=== PATIENT | female | born 1935 | race Caucasian/White ===

== ENCOUNTER 2017-11-30 12:44 | Inpatient (IN) ==
[2017-11-30] MEDS ORDERED: 0.9 % Sodium Chloride 1,000 ML IVC ONE ×2 (13:00→14:13)
--- NOTE | 2017-11-30 13:09 | Emergency Department Note ---
Disposition Clinical Impression: Weakness, FRANCES (acute kidney injury), Dehydration Disposition: Admitted As Inpatient Condition: Good Forms: ED Satisfaction Letter Time of Disposition: 15:34 General Adult HPI - General Chief complaint: ED Weakness Stated complaint: General Weakness Time Seen by Provider: 11/30/17 12:47 Source: patient, EMS Mode of arrival: EMS Limitations: no limitations Nursing Notes Reviewed: Yes Vital Signs Reviewed: Yes - History of Present Illness HPI Narrative: Patient is an 82-year-old female that presents emergency department for generalized weakness. Family states that she has been seen here 2 times in the past 7 days. The state that she has had nausea vomiting and diarrhea preceding today's visit. States that his resolved but she continues to feel weak and is had decreased oral intake of fluids and food. States that she has been drinking ice water. She also states that she has been eating small amounts of food including ice cream, vegetable soup and Jell-O. Family states that she is much weaker than normal and needs help with ambulation and with eating. States that she normally is able to perform these tasks without any issue. They deny any focal deficit she states that she generally seems weak. Pain Scale: 0 - Related Data Home Medications Medication Instructions Recorded Confirmed ALPRAZolam [Xanax 0.5 MG Tablet] 0.5 mg PO HS 03/30/15 10/02/16 Alendronate Sodium 70 mg PO QWEEK 03/30/15 10/02/16 Chlorpheniramine Maleate 4 mg PO BID 03/30/15 10/02/16 [Chlor-Trimeton] Docusate Sodium [Stool Softener] 50 mg PO DAILY 03/30/15 10/02/16 Ferrous Sulfate 325 mg PO DAILY 03/30/15 10/02/16 Gabapentin [Neurontin] 50 mg PO TID 03/30/15 10/02/16 Levothyroxine [Synthroid] 75 mcg PO 0630 03/30/15 10/02/16 Lidocaine Patch [Lidoderm 5% patch] 1 each TP Q12H 03/30/15 10/02/16 Lisinopril [Zestril] 5 mg PO DAILY 03/30/15 10/02/16 Nortriptyline [Pamelor] 50 mg PO HS 03/30/15 10/02/16 OxyCODONE Immed Rel [Roxicodone 10 10 mg PO Q6H PRN 11/03/15 05/08/17 MG] Pioglitazone [Actos] 45 mg PO 0800 03/30/15 10/02/16 Polyethylene Glycol 3350 [MiraLAX] 17 gm PO DAILY 03/30/15 10/02/16 Ranitidine HCl [Zantac] 150 mg PO BID 03/30/15 10/02/16 Simvastatin [Zocor] 20 mg PO HS 03/30/15 10/02/16 Ergocalciferol (VITAMIN D2) 50,000 unit PO QWEEK 02/01/16 10/02/16 [Vitamin D2 (50,000 UNIT)] Previous Rx's Medication Instructions Recorded Cyanocobalamin/FA/Pyridoxine 1 each PO DAILY #30 tablet 12/10/15 [Folbee Tablet] Ondansetron HCl [Zofran] 4 mg PO Q8HR PRN #15 tab 11/27/17 Allergies Allergy/AdvReac Type Severity Reaction Status Date / Time rofecoxib [From Vioxx] AdvReac Seizure Verified 11/27/17 16:42 Constitutional: Reports: weakness Cardiovascular: Denies: chest pain Respiratory: Denies: dyspnea Gastrointestinal: Denies: abdominal pain, vomiting, diarrhea Past Medical History - Past Medical History Medical history: Reports: arthritis, CHF, diabetes, hyperlipidemia, migraine, thyroid disease Surgical history: Reports: Psychiatric history: Reports: anxiety - Social History Smoking Status: Never smoker Smokeless Tobacco Status: No Alcohol use: Reports: none, unknown Drug use: Reports: none, unknown Physical Exam - General Limitations: no limitations General appearance: alert, in no apparent distress - Head Head exam: atraumatic, normocephalic - Eye Eye exam: Present: normal appearance, EOMI - Neck Neck exam: Present: normal inspection, full ROM, trachea midline - Respiratory Respiratory exam: Present: normal lung sounds bilaterally. Absent: respiratory distress, wheezes - Cardiovascular Cardiovascular exam: Present: regular rate, normal rhythm, normal heart sounds, +S1, +S2 - Abdominal Exam Abdominal exam: Present: soft, Non-Tender, normal bowel sounds - Neurological Exam Neurological exam: Present: alert, oriented X3, CN II-XII intact - Expanded Neurological Exam Cranial nerves: EOM function (II, III, IV, ): Normal, facial sensation (V): Normal, facial palsy (VII): Normal, gag reflex (IX): Normal, spinal accessory function (XI): Normal, tongue deviation (XII): Normal Motor strength - LUE: 5/5 Motor strength - RUE: 5/5 Motor strength - LLE: 5/5 Motor strength - RLE: 5/5 Sensory exam upper extremity: light touch: Normal Sensory exam lower extremity: light touch: Normal Coma Scale Eye Opening: Spontaneous Coma Scale Motor Response: Obeys Commands Coma Scale Verbal Response: Oriented Coma Scale Total: 15 - Psychiatric Psychiatric exam: Present: normal affect, normal mood - Skin Skin exam: Present: warm, dry, intact Course Vital Signs Temperature 98.3 F 11/30/17 12:55 Pulse Rate 94 11/30/17 12:55 Respiratory Rate 14 11/30/17 12:55 Blood Pressure 112/84 11/30/17 12:55 O2 Sat by Pulse Oximetry 95 11/30/17 12:55 Temperature 98.3 F 11/30/17 12:55 Pulse Rate 75 11/30/17 14:33 Respiratory Rate 16 11/30/17 14:33 Blood Pressure 120/59 11/30/17 14:33 O2 Sat by Pulse Oximetry 96 11/30/17 14:33 Oxygen Delivery Oxygen Delivery Nasal Cannula Medical Decision Making - MDM Narrative Medical decision making narrative: Due to the patient presenting to the emergency department generalized weakness we will obtain a CBC, CMP, troponin, chest x-ray EKG, urinalysis and patient will be given a liter IV fluids here in the emergency department. Laboratory testing showed acute kidney injury which is consistent with possible dehydration. The patient will need to be admitted to the hospital for further evaluation and management and IV fluids. I spoke with the hospitalist Dr. Marin and she has accepted the patient to their service. The patient be admitted to the hospital at this time for further evaluation and management. - Lab Data Lab results reviewed: Yes I reviewed the patient's lab results. Result diagrams: 11/30/17 13:00 11/30/17 13:00 Lab Results 11/30/17 11/30/17 11/30/17 Range/Units 13:00 13:00 13:02 WBC 9.1 (4.3-11.1) K/mcL RBC 3.60 L (3.82-4.97) M/mcL Hgb 10.7 L D (11.5-15.4) g/dL Hct 34.4 L (35.3-44.9) % MCV 95.6 (83.0-100.0) fL MCH 29.7 (28.0-33.3) pg MCHC 31.1 L (31.6-35.5) g/dL RDW 13.9 (11.5-14.5) % Plt Count 246 (140-400) K/mcL MPV 9.2 L (9.4-12.4) fL Immature Gran % 0.5 (0-4) % Seg Neutrophils % 66.0 % Lymphocytes % 14.3 % Monocytes % 14.4 % Eosinophils % 4.5 % Basophils % 0.3 % Neutrophils # 6.0 (1.6-8.9) K/mcL Lymphocytes # 1.3 (0.6-4.6) K/mcL Monocytes # 1.3 (0.0-1.3) K/mcL Eosinophils # 0.4 (0.0-0.6) K/mcL Basophils # 0.0 (0.0-0.2) K/mcL Sodium 135 L (136-145) mEq/L Potassium 4.0 (3.5-5.1) mEq/L Chloride 99 (98-107) mEq/L Carbon Dioxide 29 (23-29) mEq/L BUN 18 (8-23) mg/dL Creatinine 1.59 H (0.60-1.20) mg/dL Est GFR ( Amer) 38 L (> 60) Est GFR (Non-Af Amer) 31 L (> 60) BUN/Creatinine Ratio 11 (6-26) Glucose 121 H (70-105) mg/dL Calculated Osmolality 283 (280-300) Calcium 9.0 (8.6-10.3) mg/dL Total Bilirubin 0.3 (0.3-1.0) mg/dL AST 35 (13-39) Units/L ALT 17 (7-52) Units/L Alkaline Phosphatase 47 (34-104) Units/L Troponin I < 0.03 (< 0.04) ng/mL Serum Total Protein 6.4 (6.4-8.9) g/dL Albumin 3.7 (3.5-5.7) g/dL Globulin 2.7 (2.4-3.5) g/dL Albumin/Globulin Ratio 1.4 (1.1-2.2) Urine Color Dark Yellow (Yellow) Urine Clarity Clear (Clear) Urine pH 5.0 (5.0-8.0) pH Units Ur Specific Aurelia 1.028 H (1.010-1.025) Urine Protein Negative (Neg-Trace) mg/dL Urine Glucose (UA) Normal (Normal) mg/dL Urine Ketones Trace H (Negative) mg/dL Urine Blood Negative (Negative) Urine Nitrite Negative (Negative) Urine Bilirubin Small H (Negative) Urine Urobilinogen Normal (Normal) mg/dL Ur Leukocyte Esterase Negative (Negative) Ur Culture Indicated? NO (NO) - Radiology Data Radiology results reviewed: Yes I reviewed the patient's radiology results. Chest X-Ray 11/30/17 13:00 IMPRESSION: Limited chest with low lung volumes and rotation. No acute cardiopulmonary disease. D/ / Christopher Krishnamurthy MD / Christopher Krishnamurthy MD Interpreting Provider: Christopher Krishnamurthy MD - EKG Data EKG #1 EKG attestation: Yes I reviewed and interpreted this EKG. EKG results narrative: EKG shows a sinus rhythm and rate of 80 bpm, MT interval of 195, QRS duration 82 , QTC of 394 with a normal axis. No evidence of STEMI on EKG. This is compared to previous EKG on 11/24/17 which showed a sinus rhythm at a rate of 87 bpm.
[2017-11-30 13:20] LABS: Bilirubin,Urine Small (Negative); Blood,Urine Negative (Negative); Clarity,Urine Clear (Clear); Color,Urine Dark Yellow (Yellow); Glucose,Urine (UA) Normal (Normal); Ketones,Urine Trace mg/dL (Negative); Leukocyte Esterase,Urine Negative (Negative); Nitrite,Urine Negative (Negative); Protein,Urine Negative (Neg-Trace); Specific Gravity,Urine 1.028 (1.010-1.025); Urobilinogen,Urine Normal (Normal)
[2017-11-30 13:28] LABS: Basophils % 0.3 %; Eosinophils # 0.4 K/mcL (0.0-0.6); Eosinophils % 4.5 %; Hematocrit 34.4 % (35.3-44.9); Immature Granulocytes % 0.5 % (0-4); Lymphocytes # 1.3 K/mcL (0.6-4.6); Lymphocytes % 14.3 %; Mean Corpuscular HGB Conc 31.1 g/dL (31.6-35.5); Mean Corpuscular Hemoglobin 29.7 pg (28.0-33.3); Mean Corpuscular Volume 95.6 fL (83.0-100.0); Mean Platelet Volume 9.2 fL (9.4-12.4); Monocytes # 1.3 K/mcL (0.0-1.3); Monocytes % 14.4 %; Platelet Count 246 K/mcL (140-400); Red Cell Distribution Width 13.9 % (11.5-14.5)
[2017-11-30 13:30] LABS: Hemoglobin 10.7 g/dL (11.5-15.4)
[2017-11-30] MEDS ORDERED: 0.9 % Sodium Chloride 1,000 ML ONE (14:09)
--- NOTE | 2017-11-30 14:14 | Emergency Department Note ---
Disposition Clinical Impression: Weakness Disposition: Admitted As Inpatient Forms: ED Satisfaction Letter General Adult HPI - General Chief complaint: ED Weakness Stated complaint: General Weakness Time Seen by Provider: 11/30/17 12:47 Source: patient, EMS Mode of arrival: EMS Limitations: no limitations - History of Present Illness Pain Scale: 0 - Related Data Home Medications Medication Instructions Recorded Confirmed ALPRAZolam [Xanax 0.5 MG Tablet] 0.5 mg PO HS 03/30/15 10/02/16 Alendronate Sodium 70 mg PO QWEEK 03/30/15 10/02/16 Chlorpheniramine Maleate 4 mg PO BID 03/30/15 10/02/16 [Chlor-Trimeton] Docusate Sodium [Stool Softener] 50 mg PO DAILY 03/30/15 10/02/16 Ferrous Sulfate 325 mg PO DAILY 03/30/15 10/02/16 Gabapentin [Neurontin] 50 mg PO TID 03/30/15 10/02/16 Levothyroxine [Synthroid] 75 mcg PO 0630 03/30/15 10/02/16 Lidocaine Patch [Lidoderm 5% patch] 1 each TP Q12H 03/30/15 10/02/16 Lisinopril [Zestril] 5 mg PO DAILY 03/30/15 10/02/16 Nortriptyline [Pamelor] 50 mg PO HS 03/30/15 10/02/16 OxyCODONE Immed Rel [Roxicodone 10 10 mg PO Q6H PRN 03/30/15 10/02/16 MG] Pioglitazone [Actos] 45 mg PO 0800 03/30/15 10/02/16 Polyethylene Glycol 3350 [MiraLAX] 17 gm PO DAILY 03/30/15 10/02/16 Ranitidine HCl [Zantac] 150 mg PO BID 03/30/15 10/02/16 Simvastatin [Zocor] 20 mg PO HS 03/30/15 10/02/16 Ergocalciferol (VITAMIN D2) 50,000 unit PO QWEEK 02/01/16 10/02/16 [Vitamin D2 (50,000 UNIT)] Previous Rx's Medication Instructions Recorded Cyanocobalamin/FA/Pyridoxine 1 each PO DAILY #30 tablet 12/10/15 [Folbee Tablet] Ondansetron HCl [Zofran] 4 mg PO Q8HR PRN #15 tab 11/27/17 Allergies Allergy/AdvReac Type Severity Reaction Status Date / Time rofecoxib [From Vioxx] AdvReac Seizure Verified 11/27/17 16:42 Constitutional: Reports: weakness Cardiovascular: Denies: chest pain Respiratory: Denies: dyspnea Gastrointestinal: Denies: abdominal pain, vomiting, diarrhea Past Medical History - Past Medical History Medical history: Reports: arthritis, CHF, diabetes, hyperlipidemia, migraine, thyroid disease Surgical history: Reports: Psychiatric history: Reports: anxiety - Social History Smoking Status: Never smoker Smokeless Tobacco Status: No Alcohol use: Reports: none, unknown Drug use: Reports: none, unknown Physical Exam - General Limitations: no limitations General appearance: alert, in no apparent distress Course Vital Signs Temperature 98.3 F 11/30/17 12:55 Pulse Rate 94 11/30/17 12:55 Respiratory Rate 14 11/30/17 12:55 Blood Pressure 112/84 11/30/17 12:55 O2 Sat by Pulse Oximetry 95 11/30/17 12:55 Temperature 98.3 F 11/30/17 12:55 Pulse Rate 94 11/30/17 12:55 Respiratory Rate 14 11/30/17 12:55 Blood Pressure 112/84 11/30/17 12:55 O2 Sat by Pulse Oximetry 95 11/30/17 13:19 Oxygen Delivery Oxygen Delivery Room Air Medical Decision Making - Lab Data Result diagrams: 11/30/17 13:00 Lab Results 11/30/17 11/30/17 Range/Units 13:00 13:02 WBC 9.1 (4.3-11.1) K/mcL RBC 3.60 L (3.82-4.97) M/mcL Hgb 10.7 L D (11.5-15.4) g/dL Hct 34.4 L (35.3-44.9) % MCV 95.6 (83.0-100.0) fL MCH 29.7 (28.0-33.3) pg MCHC 31.1 L (31.6-35.5) g/dL RDW 13.9 (11.5-14.5) % Plt Count 246 (140-400) K/mcL MPV 9.2 L (9.4-12.4) fL Immature Gran % 0.5 (0-4) % Seg Neutrophils % 66.0 % Lymphocytes % 14.3 % Monocytes % 14.4 % Eosinophils % 4.5 % Basophils % 0.3 % Neutrophils # 6.0 (1.6-8.9) K/mcL Lymphocytes # 1.3 (0.6-4.6) K/mcL Monocytes # 1.3 (0.0-1.3) K/mcL Eosinophils # 0.4 (0.0-0.6) K/mcL Basophils # 0.0 (0.0-0.2) K/mcL Urine Color Dark Yellow (Yellow) Urine Clarity Clear (Clear) Urine pH 5.0 (5.0-8.0) pH Units Ur Specific Koppel 1.028 H (1.010-1.025) Urine Protein Negative (Neg-Trace) mg/dL Urine Glucose (UA) Normal (Normal) mg/dL Urine Ketones Trace H (Negative) mg/dL Urine Blood Negative (Negative) Urine Nitrite Negative (Negative) Urine Bilirubin Small H (Negative) Urine Urobilinogen Normal (Normal) mg/dL Ur Leukocyte Esterase Negative (Negative) Ur Culture Indicated? NO (NO) Attestation Statement - Attestation Attestation: I examined this patient and my medical decision-making was reviewed with the Resident Physician. I agree with the documented findings, disposition and treatment plan as described except to the extent set forth below. 82 year old female presents to the ED with complaints of generalized weakness and was most recently admitted to the hospital. She states that she stays at her private home with many adults and states that she was feeling increasingly better until last week and then had decreased urine output and generalied weakness somuch so that she now has difficulty standing up without becoming pre- sycnopal. Christopher placed and it shows dark, tea-colored urine. She idenies all other chest and abdominal pain, or UTI symptoms. Atinet appears dehydraed at bedside. I have concenres for renal failure. WE will do labs and EKG and AMS workup and then chasity leigh admit ot medicine.
[2017-11-30 14:41] LABS: Troponin I < 0.03 ng/mL (< 0.04)
[2017-11-30 14:46] LABS: Alanine Aminotransferase 17 Units/L (7-52); Albumin 3.7 g/dL (3.5-5.7); Albumin/Globulin Ratio 1.4 (1.1-2.2); Alkaline Phosphatase 47 Units/L (34-104); Aspartate Amino Transferase 35 Units/L (13-39); BUN/Creatinine Ratio 11 (6-26); Bilirubin,Total 0.3 mg/dL (0.3-1.0); Blood Urea Nitrogen 18 mg/dL (8-23); Carbon Dioxide 29 mEq/L (23-29); Chloride 99 mEq/L (98-107); Globulin 2.7 g/dL (2.4-3.5); Glucose 121 mg/dL (70-105); Osmolality,Calculated 283 (280-300); Sodium 135 mEq/L (136-145); Total Protein 6.4 g/dL (6.4-8.9); eGFR For African Americans 38 (> 60); eGFR For Non-African Americans 31 (> 60)
--- NOTE | 2017-11-30 16:42 | Internal Med History&Physical ---
Date of Encounter: 11/30/17 Time of Encounter: 16:42 Internal Medicine - H&P: HPI Chief complaint: weekness History of present illness: Ms. Dutta is a 82 year old female that presents emergency department for generalized weakness after several episodes of nausea vomiting and diarrhea preceding today's visit. States that his resolved but she continues to feel weak and is had decreased oral intake of fluids and food. Labs revealed FRANCES and she was admitted for further evaluation. Past Med Surg Social Fam HX - Past Medical History Medical history: arthritis, CHF, diabetes, hyperlipidemia, migraine, thyroid disease Additional medical history: anemia, hypothyroid, osteoarthritis, scoliosis Psychiatric history: anxiety - Past Surgical History Surgical History: Additional surgical history: x3 cesection - Social History Smoking Status: Never smoker Smokeless Tobacco Status: No Alcohol use: none, unknown Drug use: none, unknown - Family History Mother Living Status: Cause of : 67 Hx Family Cardiac Disorders: Yes Hx Family Cancer: No Hx Family Musculoskeletal Disorders: Yes Hx Family Autoimmune Disorders: Yes Internal Medicine - H&P: Meds ALPRAZolam [Xanax 0.5 MG Tablet] 0.5 mg PO HS PRN 03/30/15 [History] Alendronate Sodium 70 mg PO QWEEK 03/30/15 [History] Chlorpheniramine Maleate [Chlor-Trimeton] 4 mg PO BID 03/30/15 [History] Docusate Sodium [Stool Softener] 50 mg PO PRN PRN 03/30/15 [History] Ferrous Sulfate 325 mg PO DAILY 03/30/15 [History] Gabapentin [Neurontin] 1,200 mg PO TID 03/30/15 [History] Levothyroxine [Synthroid] 75 mcg PO 0630 03/30/15 [History] Lisinopril [Zestril] 5 mg PO DAILY 03/30/15 [History] Nortriptyline [Pamelor] 50 mg PO HS 03/30/15 [History] Pioglitazone [Actos] 45 mg PO 0800 03/30/15 [History] Polyethylene Glycol 3350 [MiraLAX] 17 gm PO DAILY 03/30/15 [History] Ranitidine HCl [Zantac] 150 mg PO BID 03/30/15 [History] Simvastatin [Zocor] 20 mg PO HS 03/30/15 [History] Ergocalciferol (VITAMIN D2) [Vitamin D2 (50,000 UNIT)] 50,000 unit PO QWEEK 11/10 [History] Ondansetron HCl [Zofran] 4 mg PO Q8HR PRN #15 tab 11/27/17 [Rx] B12/Levomefolate Calcium/B-6 [Foltx Tablet] 1 cap PO DAILY 11/30/17 [History] 3 Allergy/AdvReac Type Severity Reaction Status Date / Time rofecoxib [From Vioxx] AdvReac Seizure Verified 11/27/17 16:42 All Systems PM: A 10-system review of systems was performed and is negative for pertinent findings except as documented above in the HPI. - Constitutional Constitutional: fatigue, malaise, no chills, no fever(s), no night sweats - Cardiovascular Cardiovascular ROS IM: no chest pain, no diaphoresis, no dyspnea, no lightheadedness, no palpitations, no syncope - Respiratory Respiratory: no cough, no dyspnea, no wheezing, no excessive phlegm production - Gastrointestinal Gastrointestinal: no abdominal pain, no diarrhea, no hematemesis, no hematochezia, no melena, no nausea, no vomiting - Neurological Neurological ROS: no confusion, no convulsions, no focal weakness, no numbness, no tingling, no tremor(s) - Constitutional Vitals: Temp Pulse Resp BP Pulse Ox 97.0 F L 78 19 115/52 96 11/30/17 16:30 11/30/17 16:30 11/30/17 16:30 11/30/17 16:30 11/30/17 14:33 General appearance: Present: A&O X 3 - Head Head exam: Present: atraumatic, normocephalic - Respiratory Respiratory exam: Present: CTAB. Absent: accessory muscle use, rales, rhonchi, wheezes - Cardiovascular Cardiovascular exam: Present: RRR, +S1, +S2. Absent: diastolic murmur, gallop, rubs, systolic murmur - GI/Abdominal GI/Abdominal exam: Present: normal bowel sounds, soft, no peritoneal signs. Absent: distended, tenderness - Extremities Exam Extremities exam: Present: warm, radial pulses palpable and symmetrical. Absent : calf tenderness, cyanotic, pedal edema Internal Med - H&P Results - Labs CBC & Chem 7: 11/30/17 13:00 11/30/17 13:00 - Assessment and plan (1) FRANCES (acute kidney injury) Current Visit: Yes Status: Acute Assessment and plan: Most likely 2/2 pre-renal etiology in the sitting of volume depletion, starting IV hydration with NS, strict I/Os avoid nephrotoxins, renal dosing of meds as per current eGFR. (2) Hypertension Current Visit: No Status: Chronic Qualifiers: Hypertension type: essential hypertension Qualified Code(s): I10 - Essential (primary) hypertension (3) Hyperlipidemia Current Visit: No Status: Chronic Qualifiers: Hyperlipidemia type: unspecified Qualified Code(s): E78.5 - Hyperlipidemia , unspecified (4) Diabetes Current Visit: No Status: Chronic Qualifiers: Diabetes mellitus type: type 2 Diabetes mellitus half-way insulin use: without long term care social worker use Diabetes mellitus complication status: with unspecified complications Qualified Code(s): E11.8 - Type 2 diabetes mellitus with unspecified complications (5) GERD (gastroesophageal reflux disease) Current Visit: No Status: Chronic Qualifiers: Esophagitis presence: esophagitis presence not specified Qualified Code(s) : K21.9 - Gastro-esophageal reflux disease without esophagitis (6) DVT prophylaxis Current Visit: No Status: Acute - Time Spent With Patient Total time spent is greater than 50% in coordination of care (as documented) at patient's floor/unit and/or counseling patient:
[2017-11-30] MEDS ORDERED: Naloxone 0.4 MG/ML INJ IVP PRN (20:33)
[2017-11-30] MEDS ORDERED: *HR* HYDROcodone/Acet 5/325 mg TABLET PO PRN (20:33)
[2017-11-30] MEDS ORDERED: Acetaminophen 325 MG TABLET PO PRN (20:33)
[2017-11-30 22:37] LABS: INR 1.2
[2017-11-30 22:39] LABS: Activated Partial Thrombo Time 30.3 Seconds (26.0-36.0)
[2017-11-30] MEDS: 0.9 % Sodium Chloride 1,000 ML IVC SCH (22:58)
[2017-12-01] MEDS ORDERED: ALPRAZolam 0.5 MG TABLET PO PRN (03:49)
[2017-12-01] MEDS ORDERED: Ondansetron ODT 4 MG TAB.RAPDIS PO PRN (03:49)
[2017-12-01] MEDS ORDERED: Docusate Oral Soln 100 MG/10 ML UDC PO PRN (03:49)
[2017-12-01] MEDS ORDERED: *HR* Dextrose 50 % in Water (Syg) 50 ML SYRINGE IVP PRN (03:54)
[2017-12-01] MEDS ORDERED: Dextrose Gel 15 GM/37.5 ML TUBE PO PRN ×2 (03:54)
[2017-12-01] MEDS ORDERED: D5% in Water 1,000 ML IVC PRN (03:54)
[2017-12-01] MEDS ORDERED: NON-FORMULARY MEDICATION 1 EACH EACH (Alendronate Sodium [Alendronate Sodium] 70 MG) PO SCH (04:00)
[2017-12-01 04:42] LABS: Basophils % 0.3 %; Eosinophils # 0.5 K/mcL (0.0-0.6); Eosinophils % 4.3 %; Hematocrit 33.1 % (35.3-44.9); Hemoglobin 10.3 g/dL (11.5-15.4); Immature Granulocytes % 0.4 % (0-4); Lymphocytes % 8.9 %; Mean Corpuscular HGB Conc 31.1 g/dL (31.6-35.5); Mean Corpuscular Hemoglobin 29.8 pg (28.0-33.3); Mean Corpuscular Volume 95.7 fL (83.0-100.0); Mean Platelet Volume 9.3 fL (9.4-12.4); Monocytes # 1.5 K/mcL (0.0-1.3); Monocytes % 13.3 %; Neutrophils # 8.2 K/mcL (1.6-8.9); Platelet Count 252 K/mcL (140-400); Red Blood Count 3.46 M/mcL (3.82-4.97); Red Cell Distribution Width 13.9 % (11.5-14.5); Segmented Neutrophils % 72.8 %
[2017-12-01 05:06] LABS: Alanine Aminotransferase 17 Units/L (7-52); Albumin 3.4 g/dL (3.5-5.7); Albumin/Globulin Ratio 1.3 (1.1-2.2); Alkaline Phosphatase 47 Units/L (34-104); Aspartate Amino Transferase 34 Units/L (13-39); BUN/Creatinine Ratio 16 (6-26); Bilirubin,Total 0.4 mg/dL (0.3-1.0); Blood Urea Nitrogen 14 mg/dL (8-23); Calcium 8.5 mg/dL (8.6-10.3); Carbon Dioxide 24 mEq/L (23-29); Chloride 107 mEq/L (98-107); Chol/HDL Ratio 3.3 (0-4.9); Cholesterol 166 mg/dL (< 200); Globulin 2.6 g/dL (2.4-3.5); Glucose 112 mg/dL (70-105); HDL Cholesterol 50 mg/dL (40-59); LDL Cholesterol,Calculated 87 mg/dL (0-99); Magnesium 1.7 mg/dL (1.6-2.6); Osmolality,Calculated 287 (280-300); Phosphorous 2.7 mg/dL (2.7-4.5); Potassium 4.1 mEq/L (3.5-5.1); Sodium 138 mEq/L (136-145); Triglycerides 144 mg/dL (< 150); eGFR For African Americans > 60 (> 60); eGFR For Non-African Americans > 60 (> 60)
[2017-12-01] MEDS: *HR* Heparin 5,000 UNIT/ML VIAL SQ SCH ×2 (06:20→17:58)
[2017-12-01] MEDS: 0.9 % Sodium Chloride 1,000 ML IVC SCH (06:33)
[2017-12-01] MEDS: Famotidine 20 MG TABLET PO SCH ×2 (08:32→20:07)
[2017-12-01] MEDS: *HR* Pioglitazone 45 MG TABLET PO SCH (08:37)
[2017-12-01] MEDS: CHLORPHENIRAMINE MALEATE 4 MG PO SCH ×2 (08:37→23:45)
[2017-12-01] MEDS: FOLTX PO SCH (08:37)
[2017-12-01] MEDS: Insulin LISPRO 300 UNITS/3 ML VIAL SQ SCH ×4 (08:38→23:45)
--- NOTE | 2017-12-01 10:07 | Electrocardiograph Report ---
[facility] [employer] Test Date: 2017-11-30 Pat Name: Mildred Dutta Department: 102 Room: 3A31 Gender: F Dragger: Srini : 1935 Requested By: Dominic Toledo Order Number: [id number] Reading MD: Dorian Azevedo Measurements Intervals [place] Rate: 80 P: 3 AK: 195 QRS: 19 QRSD: 82 T: 76 QT: 359 QTc: 394 Interpretive Statements SINUS RHYTHM NONSPECIFIC T-WAVE ABNORMALITY Electronically Signed On 12-01-2017 10:06:31 EDT by Dorian Azevedo
[2017-12-01] MEDS: Gabapentin 300 MG CAPSULE PO SCH ×2 (11:36→20:07)
--- NOTE | 2017-12-01 15:03 | Internal Med Progress Note ---
Date of Encounter: 12/01/17 Time of Encounter: 13:35 - Assessment and plan (1) Acute renal failure Current Visit: Yes Status: Resolved Assessment and plan: Most likely due to dehydration. Has improved today. Will recheck labs tomorrow. Qualifiers: Acute renal failure type: with acute tubular necrosis Qualified Code(s): N17.0 - Acute kidney failure with tubular necrosis (2) Dehydration Current Visit: Yes Status: Acute Assessment and plan: Due to GI issues. Appears to be doing better. (3) Weakness Current Visit: Yes Status: Acute Assessment and plan: She feels very weak and does not feel she can get up and move. PT/OT consulted. At this point she is in observation status and has Medicare so I do not know what options she will have. (4) Hypertension Current Visit: No Status: Chronic Assessment and plan: Controlled at this time. Qualifiers: Hypertension type: essential hypertension Qualified Code(s): I10 - Essential (primary) hypertension (5) Hyperlipidemia Current Visit: No Status: Chronic Assessment and plan: Continue home meds. Qualifiers: Hyperlipidemia type: mixed hyperlipidemia Qualified Code(s): E78.2 - Mixed hyperlipidemia (6) Diabetes Current Visit: No Status: Chronic Assessment and plan: Currently accuchecks and coverage. Blood sugars appear controlled at this time. Qualifiers: Diabetes mellitus type: type 2 Diabetes mellitus termite inspector insulin use: without prison use Diabetes mellitus complication status: with unspecified complications Qualified Code(s): E11.8 - Type 2 diabetes mellitus with unspecified complications (7) GERD (gastroesophageal reflux disease) Current Visit: No Status: Chronic Assessment and plan: Chronic issue Qualifiers: Esophagitis presence: esophagitis presence not specified Qualified Code(s) : K21.9 - Gastro-esophageal reflux disease without esophagitis (8) Anemia Current Visit: No Status: Chronic Assessment and plan: Appears to be at baseline. Qualifiers: Anemia type: other cause Other causes of anemia: chronic disease, other Qualified Code(s): D63.8 - Anemia in other chronic diseases classified elsewhere (9) Hypothyroid Current Visit: No Status: Chronic Assessment and plan: Chronic issue Qualifiers: Hypothyroidism type: acquired Qualified Code(s): E03.9 - Hypothyroidism, unspecified (10) Severe protein-calorie malnutrition Current Visit: Yes Status: Chronic Assessment and plan: Supplements ordered. (11) DVT prophylaxis Current Visit: No Status: Acute - Time Spent With Patient Total time spent is greater than 50% in coordination of care (as documented) at patient's floor/unit and/or counseling patient: - Subjective Interval history: Ms. Dutta is currently in observation for FRANCES related to dehydration from nausea/vomiting and diarrhea. She remains moderate to high risk at this time. Ms. Dutta is feeling OK except for feeling tired. She said she was very weak prior to this and was having trouble standing. Currently her GI symptoms are improved but she does not feel she can get out of bed. No CP or SOB. No abd pain at this time. - Constitutional Vitals: Temp Pulse Resp BP Pulse Ox 98.6 F 78 16 127/65 97 12/01/17 14:33 12/01/17 14:33 12/01/17 14:33 12/01/17 14:33 12/01/17 14:33 General appearance: Present: A&O X 3 - Head Head exam: Present: normocephalic - Eye Eye exam: Present: EOMI, conjuntiva pink - ENT ENT exam: Present: mucous membranes dry - Respiratory Respiratory exam: Present: decreased breath sounds, CTAB. Absent: rhonchi, wheezes - Cardiovascular Cardiovascular exam: Present: RRR. Absent: tachycardia - GI/Abdominal GI/Abdominal exam: Present: soft. Absent: tenderness - Extremities Exam Extremities exam: Present: warm. Absent: tenderness - Neurological Exam Neurological exam: Present: alert, oriented X3 - Skin Skin exam: Present: dry, warm Internal Medicine: Result - Labs CBC & Chem 7: 12/01/17 04:00 12/01/17 04:00 Labs: Short CBC 12/01/17 Range/Units 04:00 WBC 11.3 H (4.3-11.1) K/mcL Hgb 10.3 L (11.5-15.4) g/dL Hct 33.1 L (35.3-44.9) % Plt Count 252 (140-400) K/mcL Neutrophils # 8.2 (1.6-8.9) K/mcL BMP 12/01/17 04:00 Sodium 138 Potassium 4.1 Chloride 107 Carbon Dioxide 24 BUN 14 Creatinine 0.88 Glucose 112 H Calcium 8.5 L Liver Function 12/01/17 Range/Units 04:00 Total Bilirubin 0.4 (0.3-1.0) mg/dL AST 34 (13-39) Units/L ALT 17 (7-52) Units/L Alkaline Phosphatase 47 (34-104) Units/L Albumin 3.4 L (3.5-5.7) g/dL - ABG Interpretation ABG results: PT/INR, D-dimer PT 13.0 Seconds (9.4-12.1) H 11/30/17 22:00 Consult Discharge Plan - Plan Referrals: Ney Hudson MD [Primary Care Provider] -
[2017-12-02] MEDS: *HR* Heparin 5,000 UNIT/ML VIAL SQ SCH ×2 (05:52→17:27)
[2017-12-02 07:56] LABS: Hemoglobin 9.8 g/dL (11.5-15.4); Mean Corpuscular HGB Conc 31.6 g/dL (31.6-35.5); Mean Corpuscular Hemoglobin 30.2 pg (28.0-33.3); Mean Corpuscular Volume 95.7 fL (83.0-100.0); Mean Platelet Volume 9.5 fL (9.4-12.4); Platelet Count 218 K/mcL (140-400); Red Blood Count 3.24 M/mcL (3.82-4.97); Red Cell Distribution Width 13.7 % (11.5-14.5)
[2017-12-02 08:19] LABS: BUN/Creatinine Ratio 17 (6-26); Blood Urea Nitrogen 11 mg/dL (8-23); Calcium 8.7 mg/dL (8.6-10.3); Carbon Dioxide 30 mEq/L (23-29); Chloride 107 mEq/L (98-107); Glucose 94 mg/dL (70-105); Magnesium 1.6 mg/dL (1.6-2.6); Osmolality,Calculated 285 (280-300); Potassium 4.3 mEq/L (3.5-5.1); Sodium 138 mEq/L (136-145); eGFR For African Americans > 60 (> 60); eGFR For Non-African Americans > 60 (> 60)
[2017-12-02] MEDS: Insulin LISPRO 300 UNITS/3 ML VIAL SQ SCH ×4 (08:46→21:29)
[2017-12-02] MEDS: *HR* Pioglitazone 45 MG TABLET PO SCH (08:52)
[2017-12-02] MEDS: Famotidine 20 MG TABLET PO SCH ×2 (08:56→21:29)
[2017-12-02] MEDS: Gabapentin 300 MG CAPSULE PO SCH ×2 (08:56→21:29)
[2017-12-02] MEDS: CHLORPHENIRAMINE MALEATE 4 MG PO SCH ×2 (08:58→21:28)
[2017-12-02] MEDS: FOLTX PO SCH (08:58)
--- NOTE | 2017-12-02 09:30 | Internal Med Progress Note ---
Date of Encounter: 12/02/17 Time of Encounter: 09:15 - Assessment and plan (1) Acute renal failure Current Visit: Yes Status: Resolved Assessment and plan: Renal function remains stable and normal. Expect was related to volume depletion. Qualifiers: Acute renal failure type: with acute tubular necrosis Qualified Code(s): N17.0 - Acute kidney failure with tubular necrosis (2) Dehydration Current Visit: Yes Status: Resolved Assessment and plan: Appears to have resolved as well. (3) Weakness Current Visit: Yes Status: Acute Assessment and plan: She was able to sit on edge of bed. PT/OT consulted. Currently in observation status so I expect will go home with [facility] after evaluation. (4) Hypertension Current Visit: No Status: Chronic Assessment and plan: Controlled at this time. Qualifiers: Hypertension type: essential hypertension Qualified Code(s): I10 - Essential (primary) hypertension (5) Hyperlipidemia Current Visit: No Status: Chronic Assessment and plan: Continue home meds. Qualifiers: Hyperlipidemia type: mixed hyperlipidemia Qualified Code(s): E78.2 - Mixed hyperlipidemia (6) Diabetes Current Visit: No Status: Chronic Assessment and plan: Currently accuchecks and coverage. Blood sugars appear controlled at this time. Qualifiers: Diabetes mellitus type: type 2 Diabetes mellitus petroleum terminal plant operator insulin use: without petroleum terminal plant operator use Diabetes mellitus complication status: with unspecified complications Qualified Code(s): E11.8 - Type 2 diabetes mellitus with unspecified complications (7) GERD (gastroesophageal reflux disease) Current Visit: No Status: Chronic Assessment and plan: Chronic issue Qualifiers: Esophagitis presence: esophagitis presence not specified Qualified Code(s) : K21.9 - Gastro-esophageal reflux disease without esophagitis (8) Anemia Current Visit: No Status: Chronic Assessment and plan: Her prior H/H was low in 2016. She was higher earlier this year but now lower again. Will check stool guiac as well. Qualifiers: Anemia type: other cause Other causes of anemia: chronic disease, other Qualified Code(s): D63.8 - Anemia in other chronic diseases classified elsewhere (9) Hypothyroid Current Visit: No Status: Chronic Assessment and plan: Chronic issue Qualifiers: Hypothyroidism type: acquired Qualified Code(s): E03.9 - Hypothyroidism, unspecified (10) Severe protein-calorie malnutrition Current Visit: Yes Status: Chronic Assessment and plan: Supplements ordered. (11) DVT prophylaxis Current Visit: No Status: Acute - Time Spent With Patient Total time spent is greater than 50% in coordination of care (as documented) at patient's floor/unit and/or counseling patient: - Subjective Interval history: Ms. Dutta is currently in observation for FRANCES related to dehydration from nausea/vomiting and diarrhea. She remains moderate to high risk at this time. Ms. Dutta feels OK. She was able to sit on the edge of the bed yesterday but she did not get up. She is currently eating breakfast and thinks she may be able to get to chair today. No fever or chills. No cough. No further nausea, vomiting or diarrhea today. - Constitutional Vitals: Temp Pulse Resp BP Pulse Ox 97.7 F 76 14 135/62 99 12/02/17 07:35 12/02/17 07:35 12/02/17 07:35 12/02/17 07:35 12/02/17 07:35 General appearance: Present: A&O X 3 - Head Head exam: Present: normocephalic - Eye Eye exam: Present: conjuntiva pink - ENT ENT exam: Present: mucous membranes moist - Respiratory Respiratory exam: Present: CTAB. Absent: rales, rhonchi, wheezes - Cardiovascular Cardiovascular exam: Present: RRR. Absent: tachycardia - GI/Abdominal GI/Abdominal exam: Present: soft. Absent: tenderness - Extremities Exam Extremities exam: Present: warm. Absent: tenderness - Neurological Exam Neurological exam: Present: alert, oriented X3 - Skin Skin exam: Present: dry, warm Internal Medicine: Result - Labs CBC & Chem 7: 12/02/17 07:40 12/02/17 07:40 Labs: Short CBC 12/02/17 Range/Units 07:40 WBC 6.7 (4.3-11.1) K/mcL Hgb 9.8 L (11.5-15.4) g/dL Hct 31.0 L (35.3-44.9) % Plt Count 218 (140-400) K/mcL BMP 12/02/17 07:40 Sodium 138 Potassium 4.3 Chloride 107 Carbon Dioxide 30 H BUN 11 Creatinine 0.65 Glucose 94 Calcium 8.7 - ABG Interpretation ABG results: PT/INR, D-dimer PT 13.0 Seconds (9.4-12.1) H 11/30/17 22:00 Consult Discharge Plan - Plan Referrals: Ney Hudson MD [Primary Care Provider] -
[2017-12-02] MEDS ORDERED: Ondansetron 4 MG/2 ML VIAL IVP ONE (22:26)
[2017-12-03] MEDS: *HR* Heparin 5,000 UNIT/ML VIAL SQ SCH (05:14)
[2017-12-03] MEDS: Famotidine 20 MG TABLET PO SCH (08:39)
[2017-12-03] MEDS: *HR* Pioglitazone 45 MG TABLET PO SCH (08:39)
[2017-12-03] MEDS: Gabapentin 300 MG CAPSULE PO SCH (08:40)
[2017-12-03] MEDS: CHLORPHENIRAMINE MALEATE 4 MG PO SCH (08:45)
[2017-12-03] MEDS: FOLTX PO SCH (08:45)
[2017-12-03] MEDS: Insulin LISPRO 300 UNITS/3 ML VIAL SQ SCH (08:52)
--- NOTE | 2017-12-03 09:25 | Discharge Summary ---
<Charline Carrillo N - Last Filed: 12/03/17 16:15> - NOTES TO OUTPATIENT PROVIDER Notes to Outpatient Provider: Patient was admitted for FRANCES, which was managed with IV hydration and strict monitoring. She had weakness on admission, which was addressed by PT/OT. Home health referral sent so patient can have these services at home. She was prescribed marinol to assist with appetite. Orders not resulted at time of discharge: Pending orders 12/03/17 08:38 BMP [Basic Metabolic Panel] Routine Date of Encounter: 12/03/17 Time of Encounter: 09:25 - Discharge Diagnosis (1) Anemia Priority: Secondary Status: Chronic Qualifiers: Anemia type: other cause Other causes of anemia: chronic disease, other Qualified Code(s): D63.8 - Anemia in other chronic diseases classified elsewhere (2) Hypertension Priority: Secondary Status: Chronic Qualifiers: Hypertension type: essential hypertension Qualified Code(s): I10 - Essential (primary) hypertension (3) Hyperlipidemia Priority: Secondary Status: Chronic Qualifiers: Hyperlipidemia type: mixed hyperlipidemia Qualified Code(s): E78.2 - Mixed hyperlipidemia (4) Diabetes Priority: Secondary Status: Chronic Qualifiers: Diabetes mellitus type: type 2 Diabetes mellitus oysterman insulin use: without oysterman use Diabetes mellitus complication status: with unspecified complications Qualified Code(s): E11.8 - Type 2 diabetes mellitus with unspecified complications (5) GERD (gastroesophageal reflux disease) Priority: Secondary Status: Chronic Qualifiers: Esophagitis presence: esophagitis presence not specified Qualified Code(s) : K21.9 - Gastro-esophageal reflux disease without esophagitis (6) Hypothyroid Priority: Secondary Status: Chronic Qualifiers: Hypothyroidism type: acquired Qualified Code(s): E03.9 - Hypothyroidism, unspecified (7) DVT prophylaxis Priority: Secondary Status: Acute (8) Weakness Priority: Secondary Status: Acute (9) Dehydration Priority: Secondary Status: Resolved (10) Acute renal failure Priority: Primary Status: Resolved Qualifiers: Acute renal failure type: with acute tubular necrosis Qualified Code(s): N17.0 - Acute kidney failure with tubular necrosis (11) Severe protein-calorie malnutrition Priority: Secondary Status: Chronic Hospital course: Ms. Dutta is a 82 year old female who was admitted through the ED for FRANCES. She reported several days of weakness. She was rehydrated with NS with close watch on renal function. Physical and occupational therapy consults were placed , and home health certification was done so patient may have these services at home. Upon discharge, her creatinine had returned to normal and the patient denied any continued symptoms. - Time Spent with Patient Total time spent providing and/or coordinating discharge services: - Discharge Medications Prescriptions: Dronabinol [Marinol] 2.5 mg PO DAILY 30 Days #30 capsule Home Medications: ALPRAZolam [Xanax 0.5 MG Tablet] 0.5 mg PO HS PRN 03/30/15 [History] Alendronate Sodium 70 mg PO QWEEK 03/30/15 [History] Chlorpheniramine Maleate [Chlor-Trimeton] 4 mg PO BID 03/30/15 [History] Docusate Sodium [Stool Softener] 50 mg PO PRN PRN 03/30/15 [History] Ferrous Sulfate 325 mg PO DAILY 03/30/15 [History] Gabapentin [Neurontin] 1,200 mg PO TID 03/30/15 [History] Levothyroxine [Synthroid] 75 mcg PO 0630 03/30/15 [History] Lisinopril [Zestril] 5 mg PO DAILY 03/30/15 [History] Nortriptyline [Pamelor] 50 mg PO HS 03/30/15 [History] Pioglitazone [Actos] 45 mg PO 0800 03/30/15 [History] Polyethylene Glycol 3350 [MiraLAX] 17 gm PO DAILY 03/30/15 [History] Ranitidine HCl [Zantac] 150 mg PO BID 03/30/15 [History] Simvastatin [Zocor] 20 mg PO HS 03/30/15 [History] Ergocalciferol (VITAMIN D2) [Vitamin D2 (50,000 UNIT)] 50,000 unit PO QWEEK 11/10 [History] Ondansetron HCl [Zofran] 4 mg PO Q8HR PRN #15 tab 11/27/17 [Rx] B12/Levomefolate Calcium/B-6 [Foltx Tablet] 1 cap PO DAILY 11/30/17 [History] Dronabinol [Marinol] 2.5 mg PO DAILY 30 Days #30 capsule 12/03/17 [Rx] Simvastatin [Zocor] 20 mg PO HS tablet 12/03/17 [Rx] Allergies/Adverse Reactions: 3 Allergy/AdvReac Type Severity Reaction Status Date / Time rofecoxib [From Vioxx] AdvReac Seizure Verified 11/27/17 16:42 Date of admission: 12/02/17 16:48 Primary care physician: Ney Hudson MD Discharging clinician: Charline Carrillo Anticipated date of discharge: 12/03/17 - Constitutional Vitals: Temp Pulse Resp BP Pulse Ox 99.0 F 95 16 109/65 97 12/03/17 05:00 12/03/17 05:00 12/03/17 05:00 12/03/17 05:00 12/03/17 05:00 General appearance: Present: cooperative, A&O X 3, pleasant, answers questions appropriately - Head Head exam: Present: atraumatic, normal inspection, normocephalic - Respiratory Respiratory exam: Present: CTAB. Absent: accessory muscle use - Cardiovascular Cardiovascular exam: Present: RRR, +S1, +S2 - Extremities Exam Extremities exam: Present: full ROM. Absent: cyanotic, pedal edema - Neurological Exam Neurological exam: Present: alert, oriented X3 Additional comments: Patient moves all extremities spontaneously. - Patient Status Disposition: Home Health Service Condition: Good Overall status at discharge: patient is progressing back to baseline - Discharge Instructions Instructions: Dehydration (DC), Acute Kidney Injury (DC) Follow Up With: Tammy Green TOP PRECIPITATOR OPERATOR [Advanced Practice Nurse] - 12/07/17 3:00 pm Additional Instructions: Follow up with PCP in 3-5 days. Take Marinol 2.5mg daily to boost appetite. Drink plenty of water and remain hydrated. Home health has been ordered to provide PT/OT services. Return to the emergency department if symptoms recur or if new concerns arise. - Diet and Activity Activity: resume usual activities as tolerated <Marlo Davalos - Last Filed: 12/03/17 16:33> Date of Encounter: 12/03/17 - Discharge Diagnosis (1) Anemia Status: Chronic Qualifiers: Anemia type: other cause Other causes of anemia: chronic disease, other Qualified Code(s): D63.8 - Anemia in other chronic diseases classified elsewhere (2) Hypertension Status: Chronic Qualifiers: Hypertension type: essential hypertension Qualified Code(s): I10 - Essential (primary) hypertension (3) Hyperlipidemia Status: Chronic Qualifiers: Hyperlipidemia type: mixed hyperlipidemia Qualified Code(s): E78.2 - Mixed hyperlipidemia (4) Diabetes Status: Chronic Qualifiers: Diabetes mellitus type: type 2 Diabetes mellitus oysterman insulin use: without oysterman use Diabetes mellitus complication status: with unspecified complications Qualified Code(s): E11.8 - Type 2 diabetes mellitus with unspecified complications (5) GERD (gastroesophageal reflux disease) Status: Chronic Qualifiers: Esophagitis presence: esophagitis presence not specified Qualified Code(s) : K21.9 - Gastro-esophageal reflux disease without esophagitis (6) Hypothyroid Status: Chronic Qualifiers: Hypothyroidism type: acquired Qualified Code(s): E03.9 - Hypothyroidism, unspecified (7) DVT prophylaxis Status: Acute (8) Weakness Status: Acute (9) Dehydration Status: Resolved (10) Acute renal failure Status: Resolved Qualifiers: Acute renal failure type: with acute tubular necrosis Qualified Code(s): N17.0 - Acute kidney failure with tubular necrosis (11) Severe protein-calorie malnutrition Status: Chronic Hospital course: Ms. Dutta is a 82 year old female - Time Spent with Patient Total time spent providing and/or coordinating discharge services: Date of admission: 12/02/17 16:48 Primary care physician: Ney Hudson MD - Constitutional Vitals: Temp Pulse Resp BP Pulse Ox 97.5 F L 85 14 119/64 92 12/03/17 10:24 12/03/17 10:24 12/03/17 10:24 12/03/17 10:24 12/03/17 10:24 - Attending Attestation I examined this patient and my medical decision-making was reviewed with the Resident Physician Dr. Carrillo. I agree with the documented findings, disposition and treatment plan as described except to the extent set forth below. Ms. Dutta is a 82 year old female with known PMH of HTN, DM2, Chronic diastolic CHF, HLD and hypothyroidism pt presented to the emergency department for generalized weakness after several episodes of nausea vomiting and diarrhea. She also mentioned loss of appetite and not tolerating PO intake well. She was admitted for protien caloric malnutrition - moderate, FRANCES due to dehydration. She was started on IV hydration. Her Cr improved. She was started on Marinol for her lack of appetite. Will d/c her home in stable condition today. Gen: A,A, O x 3 Chest: Diminished BS b/l Heart: S1S2+
[2017-12-03 10:36] VITALS: BP 119/64
--- NOTE | 2017-12-03 13:31 | Physician Discharge Referral ---
Home Health/Hosp Referral Info Transfer to: Home Health Attending Provider: Anoop Provider in Charge Post Discharge: PCP - Diagnosis (1) Anemia Priority: Secondary Status: Chronic (2) Hypertension Priority: Secondary Status: Chronic (3) Hyperlipidemia Priority: Secondary Status: Chronic (4) Diabetes Priority: Secondary Status: Chronic (5) GERD (gastroesophageal reflux disease) Priority: Secondary Status: Chronic (6) Hypothyroid Priority: Secondary Status: Chronic (7) Weakness Priority: Secondary Status: Acute (8) Dehydration Priority: Secondary Status: Resolved (9) Acute renal failure Priority: Primary Status: Resolved (10) Severe protein-calorie malnutrition Priority: Secondary Status: Chronic - Respiratory Orders Smoking Cessation: Smoking cessation has been advised. For more information, call the [place] Tobacco Quit Line at 4-410-FMQE-NOW. - Diet/Nutrition Diet/Nutrition Orders: Regular, Renal - Activity Activity Orders: Up ad javad, Ambulate - Services Needed Following services are medically necessary services: Nursing, Home Health Aide, Physical Therapy, Occupational Therapy - Transfer Medications Prescriptions: Dronabinol [Marinol] 2.5 mg PO DAILY 30 Days #30 capsule Home Medications: ALPRAZolam [Xanax 0.5 MG Tablet] 0.5 mg PO HS PRN 03/30/15 [History] Alendronate Sodium 70 mg PO QWEEK 03/30/15 [History] Chlorpheniramine Maleate [Chlor-Trimeton] 4 mg PO BID 03/30/15 [History] Docusate Sodium [Stool Softener] 50 mg PO PRN PRN 03/30/15 [History] Ferrous Sulfate 325 mg PO DAILY 03/30/15 [History] Gabapentin [Neurontin] 1,200 mg PO TID 03/30/15 [History] Levothyroxine [Synthroid] 75 mcg PO 0630 03/30/15 [History] Lisinopril [Zestril] 5 mg PO DAILY 03/30/15 [History] Nortriptyline [Pamelor] 50 mg PO HS 03/30/15 [History] Pioglitazone [Actos] 45 mg PO 0800 03/30/15 [History] Polyethylene Glycol 3350 [MiraLAX] 17 gm PO DAILY 03/30/15 [History] Ranitidine HCl [Zantac] 150 mg PO BID 03/30/15 [History] Simvastatin [Zocor] 20 mg PO HS 03/30/15 [History] Ergocalciferol (VITAMIN D2) [Vitamin D2 (50,000 UNIT)] 50,000 unit PO QWEEK 11/10 [History] Ondansetron HCl [Zofran] 4 mg PO Q8HR PRN #15 tab 11/27/17 [Rx] B12/Levomefolate Calcium/B-6 [Foltx Tablet] 1 cap PO DAILY 11/30/17 [History] Dronabinol [Marinol] 2.5 mg PO DAILY 30 Days #30 capsule 12/03/17 [Rx] Allergies/Adverse Reactions: 3 Allergy/AdvReac Type Severity Reaction Status Date / Time rofecoxib [From Vioxx] AdvReac Seizure Verified 11/27/17 16:42 Certification: Further, I certify that my clinical findings support that this patient is homebound (i.e. absences from home require considerable and taxing effort and are for medical reasons or mandaen services or infrequently or short duration when for other reasons) because: Homebound Reason: Patient requires assistance of a person or device to safely leave home Attestation: My signature below is to certify that this patient is under my care and that I, or nurse practitioner, or a physician's assistant professor of chemistry working with me, has a face-to -face encounter with this patient.
[2017-12-03 15:08] LABS: BUN/Creatinine Ratio 18 (6-26); Blood Urea Nitrogen 19 mg/dL (8-23); Calcium 8.8 mg/dL (8.6-10.3); Carbon Dioxide 27 mEq/L (23-29); Chloride 101 mEq/L (98-107); Glucose 190 mg/dL (70-105); Osmolality,Calculated 289 (280-300); Potassium 4.5 mEq/L (3.5-5.1); Sodium 136 mEq/L (136-145); eGFR For African Americans > 60 (> 60); eGFR For Non-African Americans 50 (> 60)
== END 2017-12-03 16:06 | disposition home health service (06) | DRG 682 ==
LOC: 3ANU 12:44 → EMEROO 12:44 → SUATTDRO 15:40 → 3ANU 16:11
PROVIDERS: ADMIT Internal Medicine Nephrology; ATTEND Internal Medicine